=== PATIENT | female | born 1985 | race Caucasian/White ===

== ENCOUNTER 2018-12-19 15:25 | Inpatient (IN) | payer OTHER ==
[~2018-12-19] VITALS: Ht 165.1 cm; Wt 70.3 kg
[2018-12-29] MEDS ORDERED: PRENATAL TABLE1 EAC1 PO (23:28)
== END 2018-12-31 12:08 | disposition home or self-care (01) | DRG 807 ==
LOC: OB/GYN 12-25 14:59 → LDR 12-29 23:00 → OB/GYN 12-29 23:57
PROVIDERS: ADMIT Obstetrics & Gynecology
PROC: 10E0XZZ Delivery of Products of Conception, External Approach (ICD-10-PCS; principal; 2018-12-29)
DX: O80 Encounter for full-term uncomplicated delivery (principal); Z37.0 Single live birth; Z3A.39 39 weeks gestation of pregnancy